=== PATIENT | female | born 1980 | race Caucasian/White ===

== ENCOUNTER → 2017-02-09 | Day surgery (SDC) | payer OTHER ==
[~2017-02-09] VITALS: Ht 160 cm; Wt 74.8 kg
[~2017-02-09] MED LIST: HYDROXYZINE PAM50 M1 PO; MEDROL4 M2 PO; TRAMADOL HCL50 M1 PO
--- NOTE | 2017-02-11 14:17 | Operative Report ---
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 This was deepened through SQ layer, then dissected around a fibrotic fatty mass subfascial deep, based just lateral to prominence of C7, measuring 2.2 cm diameter. Cautery used for hemostasis, area was irrigated and closed in layers using interrupted 2-0 Vicryl sutures deep followed by running subcuticular 4-0 Biosyn suture for the skin itself followed by Steri-Strips Telfa and Tegaderm. EBL minimal lap and sponge counts correct wound expectancy clean IV fluids crystalloid complications none patient tolerated the procedure well was extubated and returned to recovery room in satisfactory condition.
== END ==
LOC: STS 03:14
DX: D21.0 Benign neoplasm of connective and other soft tissue of head, face and neck (principal); M54.2 Cervicalgia; K21.9 Gastro-esophageal reflux disease without esophagitis
CPT/HCPCS: 81025; 88304; J0690; J2250